=== PATIENT | female | born 1990 | race American Indian/Alaskan Native ===

== ENCOUNTER 2019-02-08 22:11 | Emergency (ER) | payer OTHER ==
[2019-02-08 22:21] VITALS: BP 122/63
[2019-02-09] MEDS ORDERED: IBUPROFEN PO ONE (00:37)
--- NOTE | 2019-02-09 00:44 | Emergency Department Report ---
ED General Adult HPI - General Chief complaint: Chest Pain Stated complaint: CHEST PAIN HEADACHE STEVEN PRESSURE Time Seen by Provider: 02/09/19 00:35 Source: patient Mode of arrival: Ambulatory Limitations: No Limitations - History of Present Illness Initial comments: 29-year-old -[place] female presents to the emergency room for chest pain, heart palpitations and headache for the last few months. Patient reports last night it got worse. Pain does not radiate that feels more as pressure. Patient complains of a headache stasis pressure located in the frontal with some dizziness. Patient admits to some nausea no vomiting little shortness of breathing and no cough. Onset/Timin -: month(s) Location: head, chest Severity scale (0 -10): 8 Quality: aching Associated Symptoms: chest pain, headaches, nausea/vomiting (nausea) Treatments Prior to Arrival: Aspirin - Related Data Previous Rx's Medication Instructions Recorded Last Taken Type Naproxen [Naprosyn] 500 mg PO BID PRN #20 tablet 02/09/19 Unknown Rx Oxymetazoline 0.05% [Afrin] 1 spray NS QHS PRN #1 bottle 02/09/19 Unknown Rx Allergies Allergy/AdvReac Type Severity Reaction Status Date / Time No Known Allergies Allergy Unverified 06/27/16 12:02 ED Review of Systems ROS: Stated complaint: CHEST PAIN HEADACHE STEVEN PRESSURE Other details as noted in HPI ED Past Medical Hx - Past Medical History Hx Hypertension: No Hx CVA: No Hx Heart Attack/AMI: No Hx Congestive Heart Failure: No Hx Diabetes: No Hx Deep Vein Thrombosis: No Hx Pulmonary Embolism: No Hx GERD: No Hx Liver Disease: No Hx Renal Disease: No Hx of Cancer: No Hx Sickle Cell Disease: No Hx Arthritis: No Hx Headaches / Migraines: Yes Hx Seizures: No Hx Kidney Stones: No Hx Psychiatric Treatment: No Hx Asthma: Yes Hx COPD: No Hx Tuberculosis: No Hx Dementia: No Hx HIV: No - Surgical History Hx Coronary Stent: No Hx Open Heart Surgery: No Hx Pacemaker: No Hx Internal Defibrillator: No Hx Cholecystectomy: No Hx Appendectomy: No Hx Breast Surgery: No Additional Surgical History: [id number] 23,2014 - Social History Smoking Status: Never Smoker Substance Use Type: Alcohol - Medications Home Medications: Home Medications Medication Instructions Recorded Confirmed Last Taken Type Naproxen [Naprosyn] 500 mg PO BID PRN #20 tablet 02/09/19 Unknown Rx Oxymetazoline 0.05% [Afrin] 1 spray NS QHS PRN #1 bottle 02/09/19 Unknown Rx ED Physical Exam - General Limitations: No Limitations ED Course Vital Signs 02/08/19 02/08/19 02/09/19 22:16 23:17 00:47 Temperature 97.9 F 97.9 F Pulse Rate 76 80 Respiratory 18 18 18 Rate Blood Pressure 122/63 122/63 O2 Sat by Pulse 100 99 Oximetry ED Medical Decision Making - EKG Data EKG shows normal: sinus rhythm Rate: normal - Medical Decision Making 29-year-old -[place] female comes in for chest pressure, headache that feels like pressure over her frontal and maxillary and palpitations. EKG was ordered shows normal sinus rhythm. Heart rate is 80. Patient has chest wall tenderness midsternal and right upper chest. Discussed the patient that ibuprofen or naproxen will be best to change her costochondritis. Also discussed the patient to continue with Flonase and Afrin once per night as needed for nasal congestion. The patient to follow up with the actuarial analyst and primary care provider. Critical care attestation.: If time is entered above; I have spent that time in minutes in the direct care of this critically ill patient, excluding procedure time. ED Disposition Clinical Impression: Costochondritis, Sinus headache Disposition: - TO HOME OR SELFCARE Is pt being admited?: No Does the pt Need Aspirin: No Condition: Stable Instructions: Palpitations (ED), Acute Headache (ED) Additional Instructions: Continue with Flonase daily Afrin at night. Naproxen as needed for pain. Follow-up with the actuarial analyst and primary care provider for chest discomfort continues. Prescriptions: Oxymetazoline 0.05% [Afrin] 1 spray NS QHS PRN #1 bottle PRN Reason: Nasal Congestion Naproxen [Naprosyn] 500 mg PO BID PRN #20 tablet PRN Reason: Pain , Severe (7-10) Referrals: ROCCO BARNES MD [Primary Care Provider] - 3-5 Days DOREEN MCMANUS MD [Staff Physician] - 3-5 Days [facility] [Provider Group] - 3-5 Days Forms: Work/School Release Form(ED)
== END 2019-02-09 01:30 | disposition home or self-care (01) ==
LOC: ED 22:11
DX: M94.0 Chondrocostal junction syndrome [Tietze] (principal); J45.909 Unspecified asthma, uncomplicated
CPT/HCPCS: 93005; 93010; 99282

== ENCOUNTER 2019-05-18 09:08 | Emergency (ER) | payer SELFPAY ==
[2019-05-18 09:30] VITALS: BP 123/40
[2019-05-18] MEDS ORDERED: DECADRON IM ONE (10:09)
[2019-05-18] MEDS ORDERED: BICILLIN L-A IM ONE (10:09)
--- NOTE | 2019-05-18 10:42 | Emergency Department Report ---
ED ENT HPI - General Chief complaint: Sore Throat Stated complaint: THROAT/EAR PAIN Time Seen by Provider: 05/18/19 10:02 Source: patient Mode of arrival: Ambulatory Limitations: No Limitations - History of Present Illness Initial comments: Patient is a 29-year-old female who is presenting with sore throat. Symptoms present for 3-4 days. Patient has some radiating discomfort and fullness in the bilateral ears. Patient states the pain is worse with swallowing and is 8 out of 10 in severity. She has had subjective fevers but denies nausea vomiting diarrhea cough congestion at this time. - Related Data Previous Rx's Medication Instructions Recorded Last Taken Type Naproxen [Naprosyn] 500 mg PO BID PRN #20 tablet 02/09/19 Unknown Rx Oxymetazoline 0.05% [Afrin] 1 spray NS QHS PRN #1 bottle 02/09/19 Unknown Rx HYDROcodone/ACETAMINOPHEN 15 ml PO Q6H PRN #150 solution 05/18/19 Unknown Rx [Hydrocodon-Acetamin 7.5-325/15] Allergies Allergy/AdvReac Type Severity Reaction Status Date / Time No Known Allergies Allergy Verified 05/18/19 09:30 ED Dental HPI - General Chief complaint: Sore Throat Stated complaint: THROAT/EAR PAIN Time Seen by Provider: 05/18/19 10:02 Source: patient Mode of arrival: Ambulatory Limitations: No Limitations - Related Data Previous Rx's Medication Instructions Recorded Last Taken Type Naproxen [Naprosyn] 500 mg PO BID PRN #20 tablet 02/09/19 Unknown Rx Oxymetazoline 0.05% [Afrin] 1 spray NS QHS PRN #1 bottle 02/09/19 Unknown Rx HYDROcodone/ACETAMINOPHEN 15 ml PO Q6H PRN #150 solution 05/18/19 Unknown Rx [Hydrocodon-Acetamin 7.5-325/15] Allergies Allergy/AdvReac Type Severity Reaction Status Date / Time No Known Allergies Allergy Verified 05/18/19 09:30 ED Review of Systems ROS: Stated complaint: THROAT/EAR PAIN Other details as noted in HPI Comment: All other systems reviewed and negative ED Past Medical Hx - Past Medical History Previous Medical History?: Yes Hx Hypertension: No Hx CVA: No Hx Heart Attack/AMI: No Hx Congestive Heart Failure: No Hx Diabetes: No Hx Deep Vein Thrombosis: No Hx Pulmonary Embolism: No Hx GERD: No Hx Liver Disease: No Hx Renal Disease: No Hx Sickle Cell Disease: No Hx Arthritis: No Hx Headaches / Migraines: Yes Hx Seizures: No Hx Kidney Stones: No Hx Psychiatric Treatment: No Hx Asthma: Yes Hx COPD: No Hx Tuberculosis: No Hx Dementia: No Hx HIV: No - Surgical History Past Surgical History?: Yes Hx Coronary Stent: No Hx Open Heart Surgery: No Hx Pacemaker: No Hx Internal Defibrillator: No Hx Cholecystectomy: No Hx Appendectomy: No Hx Breast Surgery: No Additional Surgical History: [id number] 23,2014 - Social History Smoking Status: Never Smoker Substance Use Type: Alcohol - Medications Home Medications: Home Medications Medication Instructions Recorded Confirmed Last Taken Type Naproxen [Naprosyn] 500 mg PO BID PRN #20 tablet 02/09/19 Unknown Rx Oxymetazoline 0.05% [Afrin] 1 spray NS QHS PRN #1 bottle 02/09/19 Unknown Rx HYDROcodone/ACETAMINOPHEN 15 ml PO Q6H PRN #150 solution 05/18/19 Unknown Rx [Hydrocodon-Acetamin 7.5-325/15] ED Physical Exam - General Limitations: No Limitations General appearance: alert, in no apparent distress - Head Head exam: Present: atraumatic, normocephalic - Eye Eye exam: Present: normal appearance - ENT ENT exam: Present: mucous membranes moist - Expanded ENT Exam Expanded Mouth exam: Present: normal external inspection. Absent: drooling, trismus Throat exam: Positive: tonsillar erythema, tonsillomegaly, other (uvula is midline). Negative: normal inspection, tonsillar exudate - Neck Neck exam: Present: normal inspection, lymphadenopathy (large right-sided an terior cervical lymph node present) - Respiratory Respiratory exam: Present: normal lung sounds bilaterally. Absent: respiratory distress, wheezes, rales, rhonchi - Cardiovascular Cardiovascular Exam: Present: regular rate, normal rhythm, normal heart sounds. Absent: systolic murmur, diastolic murmur, rubs, gallop - GI/Abdominal GI/Abdominal exam: Present: soft, normal bowel sounds. Absent: distended, tenderness, guarding, rebound - Extremities Exam Extremities exam: Present: normal inspection - Back Exam Back exam: Present: normal inspection - Neurological Exam Neurological exam: Present: alert, oriented X3 - Psychiatric Psychiatric exam: Present: normal affect, normal mood - Skin Skin exam: Present: warm, dry, intact, normal color. Absent: rash ED Course Vital Signs 05/18/19 09:29 Temperature 98.4 F Pulse Rate 79 Respiratory 16 Rate Blood Pressure 123/40 O2 Sat by Pulse 100 Oximetry ED Medical Decision Making - Medical Decision Making Patient does need central criteria for a period treatment. Patient started on Bicillin and Decadron here in emergency department be sent home with medications for symptomatic relief. Critical care attestation.: If time is entered above; I have spent that time in minutes in the direct care of this critically ill patient, excluding procedure time. ED Disposition Clinical Impression: Pharyngitis Qualifiers: Pharyngitis/tonsillitis etiology: unspecified etiology Qualified Code(s): J02.9 - Acute pharyngitis, unspecified Disposition: DC-01 TO HOME OR SELFCARE Is pt being admited?: No Does the pt Need Aspirin: No Condition: Stable Instructions: Pharyngitis (ED) Referrals: PRIMARY CARE [Primary Care Provider] - 3-5 Days Time of Disposition: 10:41
== END 2019-05-18 11:06 | disposition home or self-care (01) ==
LOC: ED 09:08
DX: J02.9 Acute pharyngitis, unspecified (principal); J45.909 Unspecified asthma, uncomplicated
CPT/HCPCS: 96372; 99282; J0561; J1100